=== PATIENT | female | born 1995 | race Caucasian/White ===

== ENCOUNTER 2017-05-26 06:26 | Emergency (ER) | payer BC, OTHER ==
[~2017-05-26] VITALS: Ht 165.1 cm; Wt 61.8 kg
[2017-05-26 06:33] VITALS: BP 126/83; PULSE 111; TEMP 36.7; O2SAT 100; Ht 165.1 cm; Wt 61.8 kg
--- NOTE | 2017-05-26 07:20 | DIAGNOSTIC IMAGING REPORT ---
LEFT FINGER(S) MIN 2 VIEWS ROUTINE CLINICAL HISTORY: stubbed left 4th finger, fall trauma COMPARISON: None. DISCUSSION: Linear fracture distal aspect middle phalanx left fourth finger. Moderate soft tissue edema. There is no evidence for soft tissue swelling. No evidence dislocation. IMPRESSION: Linear nondisplaced fracture distal aspect middle phalanx The above report was generated using voice recognition software. It may contain grammatical, syntax or spelling errors. Electronically signed by: González Luciano M.D. 05/26/2017 7:19 AM Dictated Date/Time: 05/26/2017 7:17 AM
--- NOTE | 2017-05-26 16:27 | EMERGENCY ROOM VISIT NOTE ---
History Report prepared by Jana: Larisa Walker Under the Supervision of: Dr. John Pandya M.D. First contact with patient: 06:54 Chief Complaint: FINGER PAIN Stated Complaint: BROKEN FINGER History of Present Illness The patient is a 22 year old female who presents to the Emergency Room with complaints of mild left fourth finger pain at the DIP joint today. The patient reports falling down a flight of stairs 8 days ago, stubbing her finger. She reports that she got a splint. She denies taking any medication for pain. Pt denies LOC, headache, visual changes, neck pain, chest pain, breathing difficulties, nausea, vomiting, abdominal pain, back pain, numbness, weakness, open wounds, active bleeding, or other complaints. Source of History: patient Onset: today Position: finger(s) (left fourth ) Symptom Intensity: mild Quality: other (finger pain ) Associated Symptoms: No fevers Review of Systems See HPI for pertinent positives and negatives. A total of six systems were reviewed and were otherwise negative. Past Medical & Surgical Medical Problems: (1) No active medical problems Family History Cancer Gallbladder disease Heart disease Hypertension Lung disease Social History Smoking Status: Current Every Day Smoker Alcohol Use: none Occupation Status: student Current/Historical Medications No Active Prescriptions or Reported Meds Allergies Coded Allergies: No Known Allergies (Unverified , 05/26/17) Physical Exam Vital Signs Date Time Temp Pulse Resp B/P (MAP) Pulse Ox O2 Delivery O2 Flow Rate FiO2 05/26/17 06:33 36.7 111 18 126/83 100 Room Air Physical Exam GENERAL: Awake, alert, well-appearing, in no distress MUSCULOSKELETAL: Chest examination reveals no tenderness. The back is symmetrical on inspection without obvious abnormality. There is no CVA tenderness to palpation. No joint edema. NEURO: Normal sensorium. No sensory or motor deficits noted. SKIN: No rash or jaundice noted. EXT: Mild ecchymosis over 4th MCP joint, swelling and tenderness of the 4th DIP joint, no open wounds, good capillary refill, no obvious rotation, ROM relatively well preserved, tendon function intact. Medical Decision & Procedures ER Provider Diagnostic Interpretation: X-ray: Per my interpretation, radiologist review. LEFT FINGER(S) MIN 2 VIEWS ROUTINE CLINICAL HISTORY: stubbed left 4th finger, fall trauma COMPARISON: None. DISCUSSION: Linear fracture distal aspect middle phalanx left fourth finger. Moderate soft tissue edema. There is no evidence for soft tissue swelling. No evidence dislocation. IMPRESSION: Linear nondisplaced fracture distal aspect middle phalanx The above report was generated using voice recognition software. It may contain grammatical, syntax or spelling errors. Electronically signed by: González Luciano M.D. 05/26/2017 7:19 AM Dictated Date/Time: 05/26/2017 7:17 AM ED Course 0720: The patient was evaluated in room B8. A complete history and physical exam was performed. 0735: I reevaluated the patient. Discussed results and discharge instructions: She verbalized understanding and agreement. The patient is ready for discharge. Medical Decision Triage Nursing notes reviewed and agree them. The patient's history was concerning for traumatic injury. Differential diagnosis: Etiologies such as fracture, dislocation, neurovascular compromise, soft tissue injury, as well as others were entertained. Physical examination: Consistent with an isolated finger injury. ER treatment provided: Patient declined analgesia The patient already has a splint which was reapplied Diagnostics interpreted by me: Imaging studies: Xrays as above. Patient has isolated finger fracture. By the evaluation outlined above emergent etiologies such as tendon injury, open fracture, dislocation, neurovascular compromise, compartment syndrome, infections, as well as others were deemed relatively unlikely. The patient was informed about the findings as listed above. All questions were answered and she was pleased with the treatment. Return instructions were outlined and the patient was discharged in stable condition. Prescription management: Declined Referral: The patient was referred to [facility] for follow-up care. [place] Drug Monitoring Program Search Results: patient reviewed within database, no issues identified Medication Reconcilliation Current Medication List: was personally reviewed by me Blood Pressure Screening Patient's blood pressure: Normal blood pressure Impression Primary Impression: Finger fracture, left Scribe Attestation The scribe's documentation has been prepared under my direction and personally reviewed by me in its entirety. I confirm that the note above accurately reflects all work, treatment, procedures, and medical decision making performed by me. Departure Information Dispostion Home / Self-Care Prescriptions No Active Prescriptions or Reported Meds Referrals No Doctor, Assigned (PCP) Thang Del Cid MD Forms HOME CARE DOCUMENTATION FORM, IMPORTANT VISIT INFORMATION, WORK / SCHOOL INSTRUCTIONS Patient Instructions My [facility] Additional Instructions ORTHOPEDIC INSTRUCTIONS: Ibuprofen(Motrin, Advil) may be used for fever or pain. Use 600mg every six hours as needed. Take with food. Avoid using more than 2400mg in a 24 hour period. Do not use 2400mg per day for more than three consecutive days without physician direction. Prolonged inappropriate use can lead to stomach upset or ulcers. (AND/OR) Acetaminophen(Tylenol) may be used for fever or pain. Use 1000mg every six hours as needed. Avoid using more than 4000mg in a 24 hour period. Ice compresses for 20 minutes at a time four times daily for 2-3 days. Rest and elevate your injury. Use the metal splint as instructed. Return to the ER immediately for any numbness, tingling, severe pain, extreme swelling in the extremity or as needed. Call [facility], [phone], tomorrow to arrange follow up for your injury with Dr. Thang Del Cid, hand specialist.
== END 2017-05-26 07:53 | disposition home or self-care (01) ==
LOC: C.EDB 06:27
DX: S62.605A Fracture of unspecified phalanx of left ring finger, initial encounter for closed fracture (principal); W19.XXXA Unspecified fall, initial encounter; Z82.49 Family history of ischemic heart disease and other diseases of the circulatory system; F17.200 Nicotine dependence, unspecified, uncomplicated